=== PATIENT | male | born 1995 | race Caucasian/White ===

== ENCOUNTER 2023-03-25 13:29 | Emergency (ER) | payer BC, SELFPAY ==
[2023-03-25 13:36] VITALS: BP 134/99
[2023-03-25 14:01] VITALS: BMI 24.5
[2023-03-25 14:13] VITALS: BP 136/93
[2023-03-25 14:30] LABS: % Basophils 0.5 % (0-2); % Eosinophils 0.4 % (0-6); % Immature Granulocytes 0.1 % (0-0.5); % Lymphocytes 5.3 % (20.5-51.1); % Monocytes 12.2 % (1.7-9.3); % Neutrophils 81.5 % (42.2-75.2); Absolute Lymphocytes 0.4 10^3/uL (1.2-3.4); Absolute Neutrophils 6.7 10^3/uL (1.4-6.5); Hematocrit 41.7 % (39.0-52.0); Mean Corpuscular Hgb 33.5 pg (27.0-31.0); Mean Corpuscular Volume 93.1 fL (80.0-94.0); Mean Platelet Volume 11.4 fL (7.4-10.4); Nucleated Red Blood Cells % 0 % (-); Platelet Count 116 10^3/uL (130-400); Red Blood Cell Count 4.48 10^6/uL (4.70-6.10); Red Cell Dist. Width 11.1 % (11.5-14.5); White Blood Cell Count 8.2 10^3/uL (4.8-10.8)
--- NOTE | 2023-03-25 14:31 | ED.GENMED ---
History of Present Illness
General
Chief Complaint: Heart Rate Problem
Source: patient
Time Seen by Provider: 03/25/23 14:06
Travel History
Have you had any contact with someone who has COVID-19?: No
Do you have any symptoms of coronavirus? Fever > 100 degrees, chills, cough, shortness of breath, sore throat, loss of taste or smell, muscle aches, or headache?: Yes
Symptoms:: cough
History of Present Illness
History of Present Illness:
Three 7-year-old male presents to the emergency room complaining of bodyaches, headache, chills, palpitations and chest discomfort. Patient states he began feeling unwell about a week ago. Symptoms seem to be worse today. Patient reveals he
drinks a significant amount of alcohol. He consumes about 7 shots of rum a day. Patient states he is essentially self-medicating due to anxiety. He has taken at least 3 different types of medications to help with his anxiety but due to side
effects have discontinued the all. He been drinking heavily for the past year. Patient states he has a history of pericarditis/myocarditis related to a viral illness back in 2017. This evidently resolved without any specific treatment. He has
not required any follow-up cardiac care since then. Patient's last drink was about 9 PM last night.
Past History
Past History
ED Past Medical History: Psychiatric (Anxiety, ADHD) and Other (Myocarditis September 2016.); Negative Asthma, HTN, Hypercholesterolemia or NIDDM
ED Past Surgical History: None
Social History
Tobacco: Non-smoker
Alcohol: Occasional
Drug: None
Personal: Single
Living: with family
Employment: Student (College student)
Family History
Family History: Other (Noncontributory)
Phy Exam
Physical Exam
Physical Exam:
General: Awake, Alert, Oriented X3. No acute distress does seem mildly
Vitals: Tachycardic, I repeated the patient's temperature and it is 100.9 orally
Head: Atraumatic
Eyes: Pupils equal, EOMI
Throat: Airway intact, no exudates
Neck: Trachea midline
Lungs: Clear and equal b/l
Heart: Regular rate, no murmurs
Abd: Soft, Nontender, No pulsatile mass
Neuro: Nonfocal
Skin: Warm, dry, no rash
Extremities: pulses equal b/l, no edema
Course
Orders/Labs/Results
Orders:
Orders
03/25/23 13:30
EKG [Electrocardiogram (*1)] Urgent
Reason for Study: Chest Pain
EKG- Treatment ONCE
03/25/23 14:18
CMP [Comprehensive Metabolic Panel] Urgent
Complete Blood Count/With Diff Urgent
Troponin I Urgent
03/25/23 14:29
0.9% Sodium Chloride 500 ml [Nss] 500 ml IV BOLUS
Acetaminophen [Tylenol] 1,000 mg PO NOW STA
Ketorolac [Toradol] 15 mg IV NOW STA
03/25/23 14:30
CR Chest - 2 Views Urgent
Comment:
Reason For Exam: chest pain
03/25/23 15:13
COVID-19 Antigen Urgent
Source: Nasal Swab
D-Dimer Urgent
Influenza A+B Rapid Molecular Urgent
CHRISTY Source: Nasal Swab
Specimen Description:
Abnormal Lab Results
03/25/23 03/25/23
14:18 15:13
RBC 4.48 L 10^6/uL
(4.70-6.10)
MCH 33.5 H pg
(27.0-31.0)
RDW 11.1 L %
(11.5-14.5)
Plt Count 116 L 10^3/uL
(130-400)
MPV 11.4 H fL
(7.4-10.4)
Absolute Neuts (auto) 6.7 H 10^3/uL
(1.4-6.5)
Absolute Lymphs (auto) 0.4 L 10^3/uL
(1.2-3.4)
Absolute Monos (auto) 1.0 H 10^3/uL
(0.1-0.6)
Neutrophils % 81.5 H %
(42.2-75.2)
Lymphocytes % 5.3 L %
(20.5-51.1)
Monocytes % 12.2 H %
(1.7-9.3)
D-Dimer 0.52 H ug/mlFEU
(0.00-0.50)
Glucose 102 H mg/dl
(70-99)
AST 253 H U/L
(17-59)
ALT 273 H U/L
(0-50)
SARS-CoV-2 Antigen Positive A
(Negative)
03/25/23 14:18
03/25/23 14:18
Vital Signs
Initial and Last Documented VS:
Initial Vital Signs
Temp Pulse Resp BP Pulse Ox
98.3 F 134 18 134/99 98
03/25/23 13:36 03/25/23 13:36 03/25/23 13:36 03/25/23 13:36 03/25/23 13:36
Last Documented Vital Signs
Temp Pulse Resp BP Pulse Ox
99.1 F 100 18 125/82 97
03/25/23 17:30 03/25/23 17:45 03/25/23 17:45 03/25/23 17:00 03/25/23 17:45
MDM/Problems Addressed
Differential Diagnosis Includes:
Influenza, COVID, other viral syndrome, withdrawal
MDM/Problems Addressed:
Patient's last drink was 9 PM. Symptoms seem to have started even before he had his last drink I think withdrawal was likely to be the source of his symptoms. COVID test did not be positive. This explains much of his muscle aches, palpitations
etc. EKG shows no acute ischemic changes. Troponin is normal. Troponin is normal. AST and ALT are elevated but consistent with alcohol use that he describes. Offered to have [facility] talk to the patient. They had not yet called the patient but
he decided he felt well enough to leave. Patient concerned that he has pericarditis again but with a normal troponin I reassured him that this is not likely
*Pulse Oximetry
Patient hypoxic: no
*EKG
Interpreted by ED Provider?: Yes
Interpretation: abnormal
Heart Rate: 116
Rate: tachycardiac
Rhythm: sinus tachycardia
[place]: normal axis
Interval: normal interval
QRS Pattern: normal QRS
Ischemia: no ischemia
*Office Workforce [employer]anner Interpretation
Rate: tachycardiac
Interpretation: abnormal
Heart Rate: 116
Rhythm: sinus tachycardia
*Critical Care Note
Total Time (30-74mins, 75-104mins- exclusive of procedures): Not Applicable
Patient Management
Social determinants of health affecting care: Substance abuse
ED Attending Note
-
Portions of this chart may have been created with voice recognition software.� Occasional wrong word or��sound alike� substitutions may have occurred due to the inherent limitations of voice recognition software.
Discharge Plan
Departure
Patient Disposition: Home (Routine Discharge)
Date of Disposition: 03/25/23
Time of Disposition: 17:36
Patient with high blood pressure during this ER visit?: No
Condition: Good
Discharge Problem:
COVID, Alcohol use disorder
Instructions: COVID-19 (DC), Alcohol Use Disorder ED
Prescriptions:
New
ondansetron 4 mg tablet,disintegrating
4 mg PO TID PRN (Reason: nausea and vomiting) Qty: 12 0RF
No Action
sertraline 100 MG tablet
125 mg PO DAILY
naproxen sodium [Aleve] 220 MG tablet
440 mg PO DAILYPRN PRN (Reason: mild pain)
loratadine 10 MG tablet
10 mg PO DAILY
methylphenidate HCl 54 MG tablet extended release 24hr
54 mg PO DAILYPRN PRN (Reason: school attendance)
Patient Comments:
ondansetron 4 MG tablet,disintegrating
4 mg PO QIDPRN PRN (Reason: nausea/vomiting) Qty: 20 0RF
prednisone 20 MG tablet
40 mg PO DAILY Qty: 8 0RF
Referrals:
Mika Dowd MD [Family Provider] -
Interventions
Interventions:
*Risk Screen - Suicide Last Done: 03/25/23 14:06
*General Assessment Last Done: 03/25/23 14:05
*Neglect/Abuse Screening Last Done: 03/25/23 14:06
ED- Fall Risk Assessment Last Done: 03/25/23 14:00
*ED COVID-19 Vaccine History Last Done: 03/25/23 13:36
*Nursing Disposition Last Done: 03/25/23 18:45
ED- Cardiac Assessment Last Done: 03/25/23 14:01
ED- Pulmonary Assessment Last Done: 03/25/23 14:01
Discharge Date and Time
Discharge Date/Time: 03/25/23 18:46
[2023-03-25 14:39] LABS: ALT (SGPT) 273 U/L (0-50); AST (SGOT) 253 U/L (17-59); Alkaline Phosphatase 100 U/L (38-126); Blood Urea Nitrogen 10 mg/dl (9-20); Calcium 9.7 mg/dl (8.4-10.2); Carbon Dioxide 29 mmol/L (22-30); Chloride 99 mmol/L (98-107); Estimated Creatinine Clearance > 125 ml/min; Glucose 102 mg/dl (70-99); Potassium 4.7 mmol/L (3.5-5.1); Sodium 135 mmol/L (135-145); Total Bilirubin 1.1 mg/dl (0.2-1.3); eGFR > 60.00
[2023-03-25 14:50] LABS: Troponin I < 0.012 ng/ml
[2023-03-25 15:00] VITALS: BP 131/83
[2023-03-25] MEDS: NSS 500 IV (15:06)
[2023-03-25] MEDS: TYLENOL 1000 MG PO (15:07)
[2023-03-25] MEDS: TORADOL 15 MG IV (15:07)
[2023-03-25 15:30] LABS: COVID-19 Antigen Positive (Negative)
[2023-03-25 15:37] LABS: D-Dimer 0.52 ug/mlFEU (0.00-0.50)
[2023-03-25 16:23] VITALS: BP 119/81
[2023-03-25 17:00] VITALS: BP 125/82
== END 2023-03-25 18:46 | disposition home or self-care (01) ==
LOC: EMR 13:29
PROVIDERS: Student in an Organized Health Care Education/Training Program; EMERGENCY PHYSICIAN Emergency Medicine; FAMILY PHYSICIAN Family Medicine
DX: U07.1 COVID-19 (principal); F10.10 Alcohol abuse, uncomplicated; R00.2 Palpitations; R51.9 Headache, unspecified; R07.89 Other chest pain; Z11.52 Encounter for screening for COVID-19; F90.9 Attention-deficit hyperactivity disorder, unspecified type; F41.9 Anxiety disorder, unspecified; Z86.79 Personal history of other diseases of the circulatory system
CPT/HCPCS: 99284; 96374; 71046; 80053; 84484; 85025; 85379; 87502; 87811; 93005